=== PATIENT | female | born 1965 | race Caucasian/White ===

== ENCOUNTER 2019-05-18 15:31 | Emergency (ER) | payer MEDICAID, OTHER ==
[~2019-05-18] VITALS: Ht 157.5 cm; Wt 77.1 kg
[2019-05-18 15:37] VITALS: Ht 157.5 cm; Wt 77.1 kg
[2019-05-18] MEDS ORDERED: NICARDipine HCL 30 MG CAPSULE PO ONE (16:30)
[2019-05-18 16:31] VITALS: PULSE 74
[2019-05-18 17:52] VITALS: BP 159/91; RESP 18
== END 2019-05-18 17:55 | disposition home or self-care (01) ==
LOC: FTE 15:31
DX: R53.83 Other fatigue (principal); I10 Essential (primary) hypertension
CPT/HCPCS: 36415; 71045; 80048; 84484; 85025; Z7502; Z7610; 93005